=== PATIENT | male | born 1965 | race Caucasian/White ===

== ENCOUNTER 2023-12-25 07:52 | Emergency (ER) | payer OTHER, SELFPAY ==
[2023-12-25 07:54] VITALS: BP 196/128; BMI 25.8
--- NOTE | 2023-12-25 07:59 | ED.GENMED ---
History of Present Illness
General
Chief Complaint: Abdominal Pain
Time Seen by Provider: 12/25/23 07:58
Travel History
Have you had any contact with someone who has COVID-19?: No
Do you have any symptoms of coronavirus? Fever > 100 degrees, chills, cough, shortness of breath, sore throat, loss of taste or smell, muscle aches, or headache?: No
History of Present Illness
History of Present Illness:
HPI: Patient presents with right lower quadrant pain that started last night. It started mildly last night and then progressively worsened. This feels similar to prior kidney stones. He has had some associated gross hematuria. He has not had
fevers. In the past he has had nausea but currently does not have nausea. He still has his appendix.
EXAM:
GENERAL: The patient appears very uncomfortable and continues to hold the right lower quadrant, he is hypertensive
HEENT: Moist oral mucosa
CARDIOVASCULAR: No murmurs, normal heart rate, regular rhythm, No chest wall tenderness
PULMONARY: No respiratory distress, breath sounds are clear and equal
ABDOMEN: Soft with no peritoneal signs, minimal if any right lower quadrant tenderness, minimal if any right CVA tenderness
NEUROLOGIC: Excellent strength all extremities, no coordination deficits
PSYCHIATRIC: Appropriate mental status, normal insight and judgement
EXTREMITIES: Nontender, no edema, moves all extremities equally
SKIN: No rash, no lesions
TIME OF INITIAL ENCOUNTER: 8:00 AM
NUMBER AND COMPLEXITY OF PROBLEMS ADDRESSED AT THE ENCOUNTER
� Chronic conditions affecting care: Has had kidney stones in the past, is a smoker, polycystic kidney disease but states his renal function is normal
� Acute Exacerbation and/or Progression of Chronic Illness: This is an acute problem
� Differential Diagnosis includes: Ureteral stone, UTI/pyelonephritis, exacerbation of polycystic kidney disease/hemorrhagic cyst, appendicitis unlikely
AMOUNT AND/OR COMPLEXITY OF DATA TO BE REVIEWED AND ANALYZED
� I performed an independent evaluation of and my interpretation is:
EKG:
CT: I personally viewed CT imaging and agree with radiologist interpretation that there is a 3+ millimeters distal ureteral stone at the UVJ
X-rays:
Laboratory Studies: Urinalysis shows 4+ blood, white count is normal, hemoglobin is 16.2, renal function is normal
Other:
� Review of other/old records: I looked for old records in [employer] however there is no old records available for review
� Clinical information was obtained by an independent historian: None needed
� Prescriptions/Medications Considered but not given:
� Further testing considered but not performed:
RISK OF COMPLICATIONS AND/OR MORBIDITY OR MORTALITY OF PATIENT MANAGEMENT
� Social determinants of health affecting care: Lives at home into [place] but is currently working here which is why came to [place]
� Discussion with other providers:
� Escalation of care including admission/observation vs risk of discharge considered: Patient's presenting symptoms are more consistent with ureteral colic however the pain is localized to the right lower quadrant, will obtain CT
imaging given the severity of his symptoms. He has not had a kidney stone in 2 years. At 9:25 AM, I reassessed the patient and the patient appears very comfortable. I sent a prescription for narcotic analgesia as well as Flomax and Zofran. I
also informed patient of the lesions on the liver however the patient tells me that they have been seen in the past ongoing for the past 10 years measuring about 8 mm in the past.
Phy Exam
Physical Exam
Physical Exam:
See HPI
Course
Orders/Labs/Results
Orders:
Orders
12/25/23 08:06
CT Abd/pel Without Iv Or Oral Urgent
Comment:
Reason For Exam: RLQ pain, gross hematuria, PCKD
0.9% Sodium Chloride 1000 ml [Nss] 1,000 ml IV BOLUS
Ketorolac [Toradol] 15 mg IV NOW STA
12/25/23 08:08
Ketorolac [Toradol] 15 mg .ROUTE .ST-MED ONE
12/25/23 08:20
Basic Metabolic Panel Urgent
Complete Blood Count/With Diff Urgent
Urinalysis Reflex To Culture Urgent
Date Specimen was Collected: 12/25/23
Time Specimen was Collected: 08:10
Urine Microscopic Reflex Cult Urgent
Abnormal Lab Results
12/25/23
08:20
RBC 4.68 L 10^6/uL
(4.70-6.10)
MCV 96.4 H fL
(80.0-94.0)
MCH 34.6 H pg
(27.0-31.0)
Chloride 109 H mmol/L
(98-107)
BUN 27 H mg/dl
(9-20)
Glucose 106 H mg/dl
(70-99)
Ur Occult Blood Reflex 4+ A
(Negative)
Leukocyte Esterase Rfl Trace A
(Negative)
Urine RBC 26-30 A /HPF
(0-2)
12/25/23 08:20
12/25/23 08:20
Vital Signs
Initial and Last Documented VS:
Initial Vital Signs
Temp Pulse Resp BP Pulse Ox
97.6 F 85 16 196/128 99
12/25/23 07:54 12/25/23 07:54 12/25/23 07:54 12/25/23 07:54 12/25/23 07:54
Last Documented Vital Signs
Temp Pulse Resp BP Pulse Ox
97.6 F 85 16 146/81 98
12/25/23 07:54 12/25/23 07:54 12/25/23 07:54 12/25/23 08:53 12/25/23 08:53
*Critical Care Note
Total Time (30-74mins, 75-104mins- exclusive of procedures): Not Applicable
ED Attending Note
-
Portions of this chart may have been created with voice recognition software.� Occasional wrong word or��sound alike� substitutions may have occurred due to the inherent limitations of voice recognition software.
Discharge Plan
Departure
Patient Disposition: Home (Routine Discharge)
Date of Disposition: 12/25/23
Time of Disposition: 09:21
Patient with high blood pressure during this ER visit?: Yes
Discharge Problem:
Right distal ureteral calculus
Instructions: Kidney Stones (DC), BLOOD PRESSURE
Prescriptions:
New
oxycodone-acetaminophen [Percocet] 5-325 mg tablet
1 - 2 tab PO Q8H PRN (Reason: Pain) Qty: 14 0RF
ondansetron HCl 4 mg tablet
4 mg PO DAILY PRN (Reason: nausea and vomiting) Qty: 14 0RF
tamsulosin [Flomax] 0.4 mg capsule
0.4 mg PO DAILY Qty: 14 0RF
Activity Restrictions/Additional Instructions:
Your kidney function is normal. Your CAT scan shows a 3 mm stone at the junction of the right ureter and the bladder. This should theoretically pass on its own. I have given you the contact information for a local urologist however you could also
follow-up with urologist Lamont Trotter. The urinalysis shows blood as expected but does not show any signs of infection. Return here if worse. I recommend 3-4 [id number] ibuprofen (Motrin) every 8 hours with food for a few days.
Incidentally, the radiologist also noted, 'Two approximately 1 cm low-density lesions within the superior liver, with attenuation value greater than cystic range. Statistically these most likely represent hemangiomas. For further evaluation,
consider MRI of the abdomen without and with contrast.'
Interventions
Interventions:
*Risk Screen - Suicide Last Done: 12/25/23 07:54
*General Assessment Last Done: 12/25/23 08:09
*Neglect/Abuse Screening Last Done: 12/25/23 07:54
ED- Fall Risk Assessment Last Done: 12/25/23 08:09
*ED COVID-19 Vaccine History Last Done: 12/25/23 07:54
RQ-Uetmxt-Njglehlcko Assessment Last Done: 12/25/23 08:09
Discharge Date and Time
Print Language: PORTUGUESE
[2023-12-25] MEDS: NSS 1000 IV (08:18)
[2023-12-25] MEDS: TORADOL 15 MG IV (08:18)
[2023-12-25 08:28] LABS: % Basophils 0.5 % (0-2); % Eosinophils 2.4 % (0-6); % Immature Granulocytes 0.5 % (0-0.5); % Lymphocytes 34.3 % (20.5-51.1); % Neutrophils 56.3 % (42.2-75.2); Absolute Eosinophils 0.2 10^3/uL (0-0.7); Absolute Lymphocytes 2.6 10^3/uL (1.2-3.4); Absolute Monocytes 0.5 10^3/uL (0.1-0.6); Absolute Neutrophils 4.3 10^3/uL (1.4-6.5); Hematocrit 45.1 % (39.0-52.0); Hemoglobin 16.2 g/dL (13.0-18.0); Mean Corp Hgb Conc. 35.9 g/dL (33.0-37.0); Mean Corpuscular Hgb 34.6 pg (27.0-31.0); Mean Corpuscular Volume 96.4 fL (80.0-94.0); Nucleated Red Blood Cells % 0 % (-); Platelet Count 276 10^3/uL (130-400); Red Blood Cell Count 4.68 10^6/uL (4.70-6.10); Red Cell Dist. Width 12.7 % (11.5-14.5); White Blood Cell Count 7.6 10^3/uL (4.8-10.8)
[2023-12-25 08:29] LABS: Urine Albumin Trace (Neg - Trace); Urine Bilirubin Negative (Negative); Urine Character Very Cloudy (Clear); Urine Color Yellow; Urine Glucose Negative (Negative); Urine Ketone Negative (Negative); Urine Leukocyte Trace (Negative); Urine Nitrite Negative (Negative); Urine Occult Blood 4+ (Negative); Urine Specific Gravity 1.015 (<1.030); Urine Urobilinogen Negative (Neg - 1+)
[2023-12-25 08:36] LABS: Urine Red Blood Cell 26-30 /HPF (0-2); Urine White Cell 0-2 /HPF (0-5)
[2023-12-25 08:47] LABS: Blood Urea Nitrogen 27 mg/dl (9-20); Calcium 10.1 mg/dl (8.4-10.2); Carbon Dioxide 26 mmol/L (22-30); Chloride 109 mmol/L (98-107); Estimated Creatinine Clearance 83 ml/min; Glucose 106 mg/dl (70-99); Sodium 140 mmol/L (135-145); eGFR > 60.00
[2023-12-25 08:53] VITALS: BP 146/81
== END 2023-12-25 09:30 | disposition home or self-care (01) ==
LOC: EMR 07:52
PROVIDERS: EMERGENCY PHYSICIAN Emergency Medicine
DX: R10.31 Right lower quadrant pain (principal); N20.1 Calculus of ureter; Z87.442 Personal history of urinary calculi
CPT/HCPCS: 99284; 96374; 96361; 74176; 80048; 81003; 81015; 85025